=== PATIENT | male | born 1940 | race Caucasian/White ===

== ENCOUNTER 2017-10-25 19:25 | Inpatient (IN) ==
--- NOTE | 2017-10-25 19:48 | Emergency Department Note ---
Disposition Clinical Impression: Fecal impaction in rectum, Small bowel obstruction Disposition: Admitted As Inpatient Condition: Good Referrals: [place],PCP [Primary Care Provider] - Albaro Uribe [Family Provider] - Forms: Work/School Release, ED Satisfaction Letter General Adult HPI - General Chief complaint: ED Abdominal Pain Stated complaint: bowel obstruction Time Seen by Provider: 10/25/17 19:40 Source: patient, EMS Mode of arrival: EMS Limitations: no limitations Nursing Notes Reviewed: Yes Vital Signs Reviewed: Yes - History of Present Illness HPI Narrative: Transfer from the [place] for concern for small bowel obstruction. Potential coffee- ground emesis. Malignant melanomas primary diagnosis. Seen at [facility] on Monday for chemotherapy. Patient has lung metastases. He started having symptoms yesterday when he did not have any stool in his colostomy. Continues to have recurrent amounts of air. Patient has lower abdominal pain. Patient has had 3 episodes of vomiting which happened at the [place]. My evaluation he complains of mild nausea but has not had any other emesis. Patient had CT scan showing fecal impaction at the distal descending and proximal sigmoid colon down to the left lower quadrant colostomy. Upstream gaseous fluid distention of the colon. Small bowel dilation may be secondary to the impaction or ileus. Partially visualized left lower lobe mass. Right nephrectomy with thickening of bilateral adrenal glands. 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 WBC 2.1. Hemoglobin 9.7. Platelets 319. Absolute neutrophil count 1.9. Neutrophil 90.9% X-ray shows large masslike opacity in the left lung base that is incompletely assessed. Dilated bowel loops in the abdomen which could represent ileus or obstruction. CT recommended. - Related Data Allergies Allergy/AdvReac Type Severity Reaction Status Date / Time ciprofloxacin [From Cipro] AdvReac Diarrhea Verified 10/25/17 19:35 codeine AdvReac Vomiting Verified 10/25/17 19:39 gabapentin AdvReac Vomiting Verified 10/25/17 19:39 Review of Systems: As Per HPI Constitutional: Denies: fever, chills Cardiovascular: Denies: chest pain, palpitations Respiratory: Denies: cough, dyspnea Gastrointestinal: Reports: abdominal pain, nausea, vomiting. Denies: constipation Musculoskeletal: Denies: back pain Integumentary: Denies: rash, abrasion, lesions Physical Exam General: Well appearing, nontoxic, no acute distress Head: Normocephalic Atraumatic Eyes: PERRL, EOMI ENT: Airway patent, no stridor Neck: supple, no meningismus Chest: Lungs clear to auscultation bilateral Cardiac: Regular rate and rhythm, no murmurs, rubs or gallops Abdomen: Distended with mild tenderness to palpation. No rebound or guarding. Colostomy bag in place with air-filled bag. Musculoskeletal: Calves symmetric, nontender, no palpable cord Skin: No rash, normal skin tone Neuro: Alert and Oriented to person, place, and time; appropriate on exam. Course - Reevaluation(s) Reevaluation #1: Patient does have an elevated heart rate. He is asking for pain medication. Does have a history of atrial fibrillation. Has not been taking his medication as normal. Patient is on metoprolol. Fluids and Lopressor have been ordered. Stable at this time. - Consultations Consultation #1: Discussed the case Dr. Burroughs. Treat as small bowel obstruction and fecal impaction. No surgical intervention at this time. He had no other recommendations. Consultation #2: Discussed with Hospitalist. I did attempt fecal disimpaction at bedside. His stool is soft and was able to get a moderate amount of stool out. Patient tolerated well. Patient admitted for further management of fecal impaction as well as small bowel obstruction. Vital Signs Temperature 98 F 10/25/17 19:44 Pulse Rate 138 10/25/17 19:44 Respiratory Rate 20 10/25/17 19:44 Blood Pressure 94/56 10/25/17 19:44 O2 Sat by Pulse Oximetry 91 10/25/17 19:44 Temperature 98 F 10/25/17 19:44 Pulse Rate 135 10/25/17 20:33 Respiratory Rate 20 10/25/17 20:33 Blood Pressure 109/69 10/25/17 20:33 O2 Sat by Pulse Oximetry 88 10/25/17 20:33 Oxygen Delivery Oxygen Delivery Nasal Cannula Medical Decision Making - Medical Records Medical records reviewed: Yes I reviewed the patient's medical records. - Lab Data Lab results reviewed: Yes I reviewed the patient's lab results. - Radiology Data Radiology results reviewed: Yes I reviewed the patient's radiology results. - EKG Data EKG #1 EKG attestation: Yes I reviewed and interpreted this EKG. EKG results narrative: EKG shows atrial fibrillation with a rate of 132. QRS 101. QTC 462. No significant ST elevations or depressions. Tachycardia compared to previous EKG of 05/25/2007
[2017-10-25] MEDS ORDERED: *HR* Metoprolol 5 MG/5 ML VIAL IVP ONE ×2 (20:46→22:56)
[2017-10-25] MEDS ORDERED: Ondansetron 4 MG/2 ML VIAL IVP ONE (20:46)
[2017-10-25] MEDS ORDERED: 0.9 % Sodium Chloride 1,000 ML IVC ONE (20:46)
[2017-10-25] MEDS: *HR* Morphine 2 MG/ML SYRINGE IVP ONE (21:13)
[2017-10-25] MEDS ORDERED: Ondansetron 4 MG/2 ML VIAL IVP PRN (22:48)
[2017-10-25] MEDS ORDERED: Naloxone 0.4 MG/ML INJ IVP PRN (22:48)
[2017-10-25] MEDS ORDERED: *HR* FentaNYL (PF) 100 MCG/2 ML VIAL IVP PRN (22:50)
--- NOTE | 2017-10-25 22:57 | Internal Med History&Physical ---
<Oneal Guardado - Last Filed: 10/25/17 22:50> Date of Encounter: 10/25/17 Time of Encounter: 09:30 Internal Medicine - H&P: HPI Chief complaint: abdominal pain Admitted From: Emergency Dept Plans for Post Hospital Care: Home History of present illness: Mr. 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 He presents to emergency department from the [place] with complaint of abdominal pain starting yesterday. He states the pain is located in the lower abdomen and does not radiate. He describes it as a aching pain without exacerbating factors and is relieved with pain medication. He states his colostomy bag has had decreased output during this time and his only past air. Last bowel movement was yesterday morning and normal for him without any evidence of blood, melena, diarrhea. He normally does have bowel movements daily. He also has been experiencing some nausea and did have one episode of vomiting in the [place] emergency department which she states was dark in color and was described by staff as coffee ground in appearance. He is currently undergoing chemotherapy at the [facility] for squamous cell with most recent treatment Monday morning which he tolerated well. His partial colectomy he states was performed in approximately [id number] at the [facility]. He did have one complication many years ago involving anastomotic leak which was repaired at this facility by Dr. Kelly. In the emergency department, vital signs are significant for tachycardia at 118 , respiratory rate 20, blood pressure of 73/45, he is saturating 92% on 4 L of oxygen. He is not oxygen dependent at home. Laboratory results obtained the [place] were significant for leukopenia at 2.1, hemoglobin 9.7, BUNs/creatinine of 35 /1.43, glucose 355. CT scan was obtained at the [place] which showed fecal impaction at the distal descending and proximal sigmoid colon with proximal gas extending to the colostomy bag. Also noted was a right nephrectomy and thickened bilateral adrenal glands. Upon arrival to our emergency room he was given 2 L of normal saline boluses, 5 mg of metoprolol for an EKG reading atrial fibrillation with rapid ventricular response. He was given Zofran, oral morphine and general surgery was consulted. Past medical history as above Past surgical history includes descending colectomy with colostomy, right lower lobe lobectomy, right nephrectomy, left thumb amputation for invasive cancer Past social history: Former smoker quitting 30 years ago, former drinker, denies drug use. Lives at home with Family history: Patient denies Past Med Surg Social Fam HX - Past Medical History Medical history: cancer - Social History Smoking Status: Former smoker Smokeless Tobacco Status: No Alcohol use: rarely Drug use: none Internal Medicine - H&P: Meds 3 Allergy/AdvReac Type Severity Reaction Status Date / Time ciprofloxacin [From Cipro] AdvReac Diarrhea Verified 10/25/17 19:35 codeine AdvReac Vomiting Verified 10/25/17 19:39 gabapentin AdvReac Vomiting Verified 10/25/17 19:39 All Systems PM: A 10-system review of systems was performed and is negative for pertinent findings except as documented above in the HPI. - Constitutional Constitutional: no chills, no fever(s), no malaise, no weakness - Cardiovascular Cardiovascular ROS IM: dyspnea, no chest pain, no dyspnea on exertion, no edema , no palpitations, no syncope - Respiratory Respiratory: cough, chest congestion, excessive phlegm production, no hemoptysis , no dyspnea on exertion, no wheezing, no change in phlegm color, no pain with cough - Gastrointestinal Gastrointestinal: abdominal pain, change in bowel habits, coffee ground emesis, nausea, vomiting, no constipation, no diarrhea, no dysphagia, no hematemesis, no hematochezia, no loose stools, no melena - Integumentary Integumentary IM: no erythema, no rash - Neurological Neurological ROS: no numbness, no tingling - Constitutional Vitals: Temp Pulse Resp BP Pulse Ox 98 F 114 20 118/78 94 10/25/17 19:44 10/25/17 22:26 10/25/17 22:26 10/25/17 22:26 10/25/17 22:26 Exam: Gen.: Vitals noted. No acute distress. AAOx3. Resting comfortably in bed HEENT: PERRL/EOMI, oropharynx clear, Normocephalic, atraumatic, mildly dry mucous membranes Cardiac: Irregularly irregular rhythm, tachycardic, no murmur, +S1/S2 Pulmonary: Rales present in upper lobes otherwise CTA bilaterally, no wheezes, rales or rhonchi, equal chest expansion. Upper airway congestion Abdomen: soft, diffusely tender to palpation with most severe and right lower and left lower quadrants, BS diminished, no guarding, no rebound. Distended Extremities: no BLE edema, nontender calf, no cyanosis or clubbing Neuro: A&Ox3, moves all extremities, no focal deficits Psych: Appropriate mood and behavior - Assessment and plan (1) Small bowel obstruction Current Visit: Yes Status: Acute Assessment and plan: - Possible small bowel shock and versus fecal impaction as demonstrated by CT obtained at [place] - Manual disimpaction attempted in emergency room and noted soft stool - Gen. surgery consult in ER, appreciate recommendations - Patient's nausea and vomiting has resolved - Possible reported coffee-ground emesis and VA however hemoglobin stable at 9.7 and he has had no further episodes. Patient did report drinking prune juice earlier. We will hold anticoagulation and monitor at this time with serial H/H's. 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 Plan - Supportive care including IV fluids at 75 mL per hour, pain control, zofran - Nothing by mouth diet - NG tube not placed, low threshold patient's pain does not improve with medications or vomiting continues - Gen. surgery consultation (2) Atrial fibrillation with RVR Current Visit: Yes Status: Acute Assessment and plan: - Possibly brought on by pain, dehydration, stress reaction, not taking home medication - EKG from [place] confirms atrial fibrillation, rate currently in the 110s to 130s - Anticoagulated home with Xarelto patient states he has not taken any meds since 10/24 - Blood pressure since improved since presentation now as a MAP in the 90s - Received 5 mg of metoprolol IV in the emergency room Plan - Continue nothing by mouth as below - Hold anticoagulation for possible need for future surgery - Continue IV rate control (3) Acute respiratory failure Current Visit: Yes Status: Acute Assessment and plan: - Currently requiring 4 L of supplemental oxygen, no home O2 requirement - Chest x-ray performed at the [place] shows right lower lobe mass otherwise no acute process - Patient is a former smoker but denies any history of CHF - Respiratory failure possibly brought on by pain, A. fib RVR, undiagnosed COPD Plan - Continue supplemental oxygen as necessary - Treat underlying issues - Breathing treatments when necessary Qualifiers: Respiratory failure complication: hypoxia Qualified Code(s): J96.01 - Acute respiratory failure with hypoxia (4) Leukopenia Current Visit: Yes Status: Acute Assessment and plan: - WBC of 2.1 - Currently undergoing chemotherapy for squamous cell carcinoma of left hand with metastasis to the right lung - Low suspicion for infection at this time although he is notably tachycardic, tachypnea. - I believe his tachycardia more related to not taking his home medications and did not feel that he is septic at this time. Qualifiers: Leukopenia type: neutropenia Neutropenia type: secondary to cancer chemotherapy Qualified Code(s): D70.1 - Agranulocytosis secondary to cancer chemotherapy; T45.1X5A - Adverse effect of antineoplastic and immunosuppressive drugs, initial encounter (5) Diabetes mellitus Current Visit: Yes Status: Chronic Assessment and plan: - Type 2 diabetes - Blood sugar on presentation to the [place] of 355 - Patient does admit that he has been unable or unwilling to take his medications for past 2 days. - We will start sliding scale insulin - Every 6 Accu-Cheks while nothing by mouth - Check A1c with morning labs Qualifiers: Diabetes mellitus type: type 2 Diabetes mellitus fci insulin use: without extermination supervisor use Diabetes mellitus complication status: with hyperglycemia Qualified Code(s): E11.65 - Type 2 diabetes mellitus with hyperglycemia (6) Hypertension Current Visit: Yes Status: Acute Assessment and plan: - Has been better controlled since presentation - He did have one episode of hypotension however this resolved with fluids - Continue to monitor with when necessary metoprolol for A. fib as above - We will continue fluids while he is nothing by mouth Qualifiers: Hypertension type: essential hypertension Qualified Code(s): I10 - Essential (primary) hypertension (7) CAD (coronary artery disease) Current Visit: Yes Status: Chronic Assessment and plan: No complaints of chest pain - Continue home medications when able to tolerate oral intake Qualifiers: Coronary Disease-Associated Artery/Lesion type: jackson artery [place] vs. transplanted heart: jackson heart Associated angina: without angina Qualified Code(s): I25.10 - Atherosclerotic heart disease of jackson coronary artery without angina pectoris (8) Fecal impaction in rectum Current Visit: Yes Status: Acute Assessment and plan: As above for small bowel extraction - Manual disimpaction attempted to emergency room with some soft stool removed - Continue supportive care as above as well as bowel rest - Consider enemas if no improvement (9) DVT prophylaxis Current Visit: Yes Status: Acute Assessment and plan: Heparin subcutaneous 5000 units every 12 hours (10) Skin cancer Current Visit: Yes Status: Chronic Assessment and plan: - Primary site appears to be left hand status post amputation of the first digit - Patient is unsure on type, however chart review indicates squamous cell carcinoma - Reported metastasis to lung - Currently undergoing chemotherapy at [facility] - Time Spent With Patient Total time spent is greater than 50% in coordination of care (as documented) at patient's floor/unit and/or counseling patient: <Yoana Alvarado - Last Filed: 10/26/17 05:21> Date of Encounter: 10/25/17 Time of Encounter: 22:00 Internal Medicine - H&P: HPI History of present illness: Mr. Ruiz is a 77 year old male All Systems PM: A 10-system review of systems was performed and is negative for pertinent findings except as documented above in the HPI. - Constitutional Vitals: Temp Pulse Resp BP Pulse Ox 98.1 F 140 20 121/72 92 10/26/17 02:22 10/26/17 02:22 10/26/17 02:22 10/26/17 02:22 10/26/17 03:32 Internal Med - H&P Results - Labs CBC & Chem 7: 10/26/17 02:12 10/26/17 02:12 Labs: Short CBC 10/26/17 Range/Units 02:12 WBC 3.6 L (4.3-11.1) K/mcL Hgb 9.0 L (12.9-16.9) g/dL Hct 28.2 L (37.5-50.1) % Plt Count 239 (140-400) K/mcL Neutrophils # 3.1 (1.6-8.9) K/mcL BMP 10/26/17 02:12 Sodium 131 L Potassium 4.6 Chloride 99 Carbon Dioxide 23 BUN 42 H Creatinine 1.11 Glucose 246 H Calcium 9.6 - Assessment and plan (1) Fecal impaction in rectum Current Visit: Yes Status: Acute (2) Small bowel obstruction Current Visit: Yes Status: Acute (3) Atrial fibrillation with RVR Current Visit: Yes Status: Acute (4) Acute respiratory failure Current Visit: Yes Status: Acute Qualifiers: Respiratory failure complication: hypoxia Qualified Code(s): J96.01 - Acute respiratory failure with hypoxia (5) DVT prophylaxis Current Visit: Yes Status: Acute (6) Leukopenia Current Visit: Yes Status: Acute Qualifiers: Leukopenia type: neutropenia Neutropenia type: secondary to cancer chemotherapy Qualified Code(s): D70.1 - Agranulocytosis secondary to cancer chemotherapy; T45.1X5A - Adverse effect of antineoplastic and immunosuppressive drugs, initial encounter (7) Diabetes mellitus Current Visit: Yes Status: Chronic Qualifiers: Diabetes mellitus type: type 2 Diabetes mellitus extermination supervisor insulin use: without extermination supervisor use Diabetes mellitus complication status: with hyperglycemia Qualified Code(s): E11.65 - Type 2 diabetes mellitus with hyperglycemia (8) Hypertension Current Visit: Yes Status: Acute Qualifiers: Hypertension type: essential hypertension Qualified Code(s): I10 - Essential (primary) hypertension (9) CAD (coronary artery disease) Current Visit: Yes Status: Chronic Qualifiers: Coronary Disease-Associated Artery/Lesion type: jackson artery [place] vs. transplanted heart: jackson heart Associated angina: without angina Qualified Code(s): I25.10 - Atherosclerotic heart disease of jackson coronary artery without angina pectoris (10) Skin cancer Current Visit: Yes Status: Chronic - Time Spent With Patient Total time spent is greater than 50% in coordination of care (as documented) at patient's floor/unit and/or counseling patient: - Attending Attestation Patient seen and examined with resident. Patient status post mechanical fecal disimpaction and ED. Currently stable. Surgery to follow in the morning. Agree with the remainder of assessment and plan. Time spent with patient 30 minutes.
[2017-10-25] MEDS ORDERED: 0.9 % Sodium Chloride 1,000 ML IVC SCH (23:00)
[2017-10-25] MEDS ORDERED: *HR* Dextrose 50 % in Water (Syg) 50 ML SYRINGE IVP PRN (23:05)
[2017-10-25] MEDS ORDERED: D5% in Water 1,000 ML IVC PRN (23:05)
[2017-10-25] MEDS ORDERED: *HR* Metoprolol 5 MG/5 ML VIAL IVP PRN (23:05)
[2017-10-25] MEDS ORDERED: Dextrose Gel 15 GM/37.5 ML TUBE PO PRN ×2 (23:05)
[2017-10-25] MEDS ORDERED: 0.9 % Sodium Chloride 500 ML IVC ONE (23:29)
[2017-10-26] MEDS ORDERED: *HR* Metoprolol 5 MG/5 ML VIAL IVP ONE (01:15)
[2017-10-26] MEDS ORDERED: 0.9 % Sodium Chloride 500 ML IVC ONE ×2 (01:15→10:28)
[2017-10-26 02:46] LABS: Basophils % 0.3 %; Hematocrit 28.2 % (37.5-50.1); Immature Granulocytes % 1.1 % (0-4); Immature Platelets 2.8 % (1.1-6.1); Lymphocytes # 0.4 K/mcL (0.6-4.6); Lymphocytes % 10.4 %; Mean Corpuscular HGB Conc 31.9 g/dL (31.6-35.5); Mean Corpuscular Hemoglobin 24.7 pg (28.0-33.3); Mean Corpuscular Volume 77.3 fL (83.0-100.0); Mean Platelet Volume 9.9 fL (9.4-12.4); Monocytes # 0.1 K/mcL (0.0-1.3); Monocytes % 2.2 %; Neutrophils # 3.1 K/mcL (1.6-8.9); Platelet Count 239 K/mcL (140-400); Red Blood Count 3.65 M/mcL (4.19-5.50); Red Cell Distribution Width 16.4 % (11.5-14.5)
[2017-10-26 03:00] LABS: BUN/Creatinine Ratio 38 (6-26); Blood Urea Nitrogen 42 mg/dL (8-23); Calcium 9.6 mg/dL (8.6-10.3); Carbon Dioxide 23 mEq/L (23-29); Chloride 99 mEq/L (98-107); Glucose 246 mg/dL (70-105); Magnesium 2.1 mg/dL (1.6-2.6); Osmolality,Calculated 291 (280-300); Potassium 4.6 mEq/L (3.5-5.1); Sodium 131 mEq/L (136-145); eGFR For Non-African Americans > 60 (> 60)
[2017-10-26] MEDS: Insulin LISPRO 300 UNITS/3 ML VIAL SQ SCH ×4 (03:23→16:48)
[2017-10-26 03:33] LABS: Anisocytosis 1+ (Not Present); Platelet Estimate Normal (Normal)
[2017-10-26] MEDS: *HR* Heparin 5,000 UNIT/ML VIAL SQ SCH ×2 (06:20→16:47)
[2017-10-26] MEDS: OXYCODONE Oral CONC 10 MG/0.5 ML ORAL.SYG SL PRN (06:21)
[2017-10-26] MEDS: *HR* Morphine 2 MG/ML SYRINGE IVP ONE (09:54)
[2017-10-26] MEDS: *HR* Metoprolol 5 MG/5 ML VIAL IVP SCH ×3 (10:44→11:04)
[2017-10-26 10:56] LABS: Estimated Average Glucose 169 mg/dl; Hemoglobin A1C 7.5 %
[2017-10-26 12:54] LABS: Digoxin < 0.3 ng/mL (0.8-2.0)
[2017-10-26] MEDS: *HR* Digoxin 0.125 MG TABLET PO SCH (13:02)
[2017-10-26] MEDS ORDERED: Amiodarone Premix 150 MG/100 ML BAG IVPB ONE (15:50)
[2017-10-26] MEDS ORDERED: Amiodarone Premix 360 MG/200 ML BAG IVC ONE (15:50)
--- NOTE | 2017-10-26 16:17 | Internal Med Progress Note ---
<Darin Cody - Last Filed: 10/26/17 16:08> Hospitalist Progress Note - Encounter Date of Encounter: 10/26/17 Time of Encounter: 11:00 - Subjective Interval History: Patient seen and examined at bedside. Patient resting comfortably but displays some heavy breathing. Reports that his abdominal pain has decreased significantly, he does not feel as nauseous, no more bouts of emesis, and he reports that he does have an appetite at this time. His ostomy output seems to have resumed somewhat after manual disimpaction in the ED, has been changed once already this morning. No blood, melana or hematochezia noticed. Patients' SBO symptoms appear to have improved somewhat yet his AFib has progressed. His HR has been between 120-140 and MAP continues to hover around 70. Additionally the patient has become increasingly SOB and is currently on 10 Liters O2. Patient denies any other complaints at this time. - Exam Vitals: Temp Pulse Resp BP Pulse Ox 98.7 F 120 16 87/63 94 10/26/17 15:44 10/26/17 15:44 10/26/17 15:44 10/26/17 15:44 10/26/17 15:44 Exam: General: Vitals noted. No acute distress. A&Ox3. Resting comfortably in bed HEENT: PERRL/EOMI, oropharynx clear, Normocephalic, atraumatic, mildly dry mucous membranes Cardiac: Irregularly irregular rhythm, tachycardic, no murmur, +S1/S2 Pulmonary: Rales present in upper lobes otherwise CTA bilaterally, no wheezes or rhonchi. Abdomen: soft, mildly tender to palpation RLQ, BS diminished, no guarding, no rebound. Distended Extremities: no BLE edema, no cyanosis or clubbing Neuro: A&Ox3, moves all extremities, no focal deficits Psych: Appropriate mood and behavior - Assessment and Plan (1) Atrial fibrillation with RVR Current Visit: Yes Status: Acute Assessment and Plan: - Possibly brought on by pain, dehydration, stress reaction, not taking home medication - EKG from [facility] confirms atrial fibrillation, rate currently in the 120s to 140s - Anticoagulated home with Xarelto patient states he has not taken any meds since 10/24 - BP now hovering around MAP 70's - Received 5 mg of metoprolol IV in the emergency room Plan - Continue nothing by mouth as below - Hold anticoagulation for possible need for future surgery - Continue IV rate control (2) Small bowel obstruction Current Visit: Yes Status: Acute Assessment and Plan: - Possible SBO versus fecal impaction versus adynamic colonic ileus as demonstrated by CT - Manual disimpaction attempted in emergency room and noted soft stool - Gen. surgery consult in ER, appreciate recommendations - No surgical interventions at this time - Patient's nausea and vomiting has resolved - Possible reported coffee-ground emesis and VA however hemoglobin stable at 9.7 and he has had no further episodes. Patient did report drinking prune juice earlier. We will hold anticoagulation and monitor at this time with serial H/H's. 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 Plan - Supportive care including IV fluids at 75 mL per hour, pain control, zofran - Nothing by mouth diet - NG tube not placed, low threshold patient's pain does not improve with medications or vomiting continues - Gen. surgery consultation (3) Acute respiratory failure Current Visit: Yes Status: Acute Assessment and Plan: - Currently requiring 10 L of supplemental oxygen, no home O2 requirement - Chest x-ray performed at the [facility] shows left lower lobe mass otherwise no acute process - Patient is a former smoker but denies any history of CHF - Respiratory failure possibly brought on by pain, A. 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 - We will start sliding scale insulin - Every 6 Accu-Cheks while nothing by mouth - Check A1c with morning labs (6) Hypertension Current Visit: Yes Status: Acute Assessment and Plan: Known history of Hypertension - Has been better controlled since presentation - Now currently Hypotensive secondary to Afib - Metoprolol for A. fib as above - continue to monitor - We will continue fluids while he is nothing by mouth (7) CAD (coronary artery disease) Current Visit: Yes Status: Chronic Assessment and Plan: No complaints of chest pain - Continue home medications when able to tolerate oral intake (8) Fecal impaction in rectum Current Visit: Yes Status: Acute Assessment and Plan: As above for small bowel extraction - Manual disimpaction attempted to emergency room with some soft stool removed - Ostomy output somewhat improved - Continue supportive care as above as well as bowel rest - Consider enemas if no improvement (9) Skin cancer Current Visit: Yes Status: Chronic Assessment and Plan: Known history of Skin Cancer with Metastasis to Left Lung - Primary site appears to be left hand status post amputation of the first digit - Patient is unsure on type, however chart review indicates squamous cell carcinoma - Reported metastasis to lung - Currently undergoing [facility] (10) DVT prophylaxis Current Visit: Yes Status: Acute Assessment and Plan: Heparin subcutaneous 5000 units every 12 hours SNOMED Code(s): 992298238, 810593810 - Time Spent with Patient Total time spent is greater than 50% in coordination of care (as documented) at patient's floor/unit and/or counseling patient: Internal Medicine: Result - Labs CBC & Chem 7: 10/26/17 02:12 10/26/17 02:12 - Impressions Impressions Chest X-Ray 10/26/17 12:03 IMPRESSION: Dense masslike opacity in the mid to lower left lung corresponds to partially visualized mass in the left lower lobe on outside CT of the abdomen/pelvis. If not previously obtained, a dedicated chest CT with contrast is recommended for further evaluation.. D/ / Edgar Carter MD / Edgar Carter MD Interpreting Provider: Edgar Carter MD Abdomen X-Ray 10/26/17 13:43 IMPRESSION: 1. Stable moderate distention of the stomach. 2. Partial interval gaseous decompression of the stomach with progressive fluid opacification. 3. No evidence of perforation. D/ / 10/26/2017 16:04:48 Yoni Greenwood MD / fredy Interpreting Provider: Yoni Greenwood MD Consult Discharge Plan - Plan Referrals: [facility] [Outside] <William Alicea T - Last Filed: 10/26/17 17:46> Hospitalist Progress Note - Encounter Date of Encounter: 10/26/17 - Exam Vitals: Temp Pulse Resp BP Pulse Ox 97.6 F 135 16 93/63 92 10/26/17 15:48 10/26/17 16:55 10/26/17 16:55 10/26/17 16:55 10/26/17 16:55 - Assessment and Plan (1) Fecal impaction in rectum Current Visit: Yes Status: Acute (2) Small bowel obstruction Current Visit: Yes Status: Acute (3) Atrial fibrillation with RVR Current Visit: Yes Status: Acute (4) Acute respiratory failure Current Visit: Yes Status: Acute (5) DVT prophylaxis Current Visit: Yes Status: Acute (6) Leukopenia Current Visit: Yes Status: Acute (7) Diabetes mellitus Current Visit: Yes Status: Chronic (8) Hypertension Current Visit: Yes Status: Acute (9) CAD (coronary artery disease) Current Visit: Yes Status: Chronic (10) Skin cancer Current Visit: Yes Status: Chronic - Time Spent with Patient Total time spent is greater than 50% in coordination of care (as documented) at patient's floor/unit and/or counseling patient: Internal Medicine: Result - Labs CBC & Chem 7: 10/26/17 02:12 10/26/17 02:12 - Impressions Impressions Chest X-Ray 10/26/17 12:03 IMPRESSION: Dense masslike opacity in the mid to lower left lung corresponds to partially visualized mass in the left lower lobe on outside CT of the abdomen/pelvis. If not previously obtained, a dedicated chest CT with contrast is recommended for further evaluation.. D/ / Edgar Carter MD / Edgar Carter MD Interpreting Provider: Edgar Carter MD Abdomen X-Ray 10/26/17 13:43 IMPRESSION: 1. Stable moderate distention of the stomach. 2. Partial interval gaseous decompression of the colon with progressive fluid opacification. 3. No evidence of perforation. D/ / 10/26/2017 16:04:48 Yoni Greenwood MD / fredy Interpreting Provider: Yoni Greenwood MD - Attending Attestation I have personally seen and examined this patient on 10/26/17 and reviewed her chart and labs, including medications, I have discussed plan of care with the resident physician, whose documentation reflect our plan of care. With the additions/exceptions set forth below. 77 M with PMH of SCC with Lung mets, COPD, HTN, Afib on anticoagulation. The patient continued to be in A. fib with RVR throughout examination this morning, heart rate ranged from 120-140, blood pressure systolic in the 80s to 90s with mean arterial pressure persistently greater than 60. The patient remained asymptomatic without chest pain, neurologic symptoms. His abdomen and pelvis CAT scan was read by radiologist. We will reported a small bowel obstruction with fecal impaction. The patient did not respond to metoprolol IV pushes, did receive but not responded to Cardizem boluses. Given his low blood pressure, amiodarone drip was started and patient was transferred to the stepdown unit. Cardiology was consulted. Surgery is on board and helping with management of small bowel obstruction. Imaging reviewed: Is x-ray with chronic lung mass without any new infiltrates. Abdominal x-ray requested by surgery noted for stable moderate distention of the stomach, patient interrogation is decompression of the colon and no perforation. Patient is high risk due to his diagnosis of bowel obstruction as well as atrial fibrillation with rapid ventricular response requiring amiodarone infusion. Resume home meds, including digoxin, and anticoagulation only after surgery documentation of no plan for intervention. Rest of details is as in the resident physician's documentation <Glo,Darin M - Last Filed: 10/26/17 16:08> (3) Acute respiratory failure Qualifiers: Respiratory failure complication: hypoxia Qualified Code(s): J96.01 - Acute respiratory failure with hypoxia (4) Leukopenia Qualifiers: Leukopenia type: neutropenia Neutropenia type: secondary to cancer chemotherapy Qualified Code(s): D70.1 - Agranulocytosis secondary to cancer chemotherapy; T45.1X5A - Adverse effect of antineoplastic and immunosuppressive drugs, initial encounter (5) Diabetes mellitus Qualifiers: Diabetes mellitus type: type 2 Diabetes mellitus fci insulin use: without termite exterminator use Diabetes mellitus complication status: with hyperglycemia Qualified Code(s): E11.65 - Type 2 diabetes mellitus with hyperglycemia (6) Hypertension Qualifiers: Hypertension type: essential hypertension Qualified Code(s): I10 - Essential (primary) hypertension (7) CAD (coronary artery disease) Qualifiers: Coronary Disease-Associated Artery/Lesion type: craig artery [place] vs. transplanted heart: craig heart Associated angina: without angina Qualified Code(s): I25.10 - Atherosclerotic heart disease of craig coronary artery without angina pectoris <William Alicea T - Last Filed: 10/26/17 17:46> (4) Acute respiratory failure Qualifiers: Qualified Code(s): J96.01 - Acute respiratory failure with hypoxia (6) Leukopenia Qualifiers: Qualified Code(s): D70.1 - Agranulocytosis secondary to cancer chemotherapy; T45.1X5A - Adverse effect of antineoplastic and immunosuppressive drugs, initial encounter (7) Diabetes mellitus Qualifiers: Qualified Code(s): E11.65 - Type 2 diabetes mellitus with hyperglycemia (8) Hypertension Qualifiers: Qualified Code(s): I10 - Essential (primary) hypertension (9) CAD (coronary artery disease) Qualifiers: Qualified Code(s): I25.10 - Atherosclerotic heart disease of craig coronary artery without angina pectoris
--- NOTE | 2017-10-26 17:53 | General Surgery Consult Note ---
Date of Encounter: 10/26/17 Time of Encounter: 17:35 History of Present Illness Consult date: 10/25/17 Requesting physician: Sincere Gallagher History of present illness: This is a delayed dictation - the patient was initially evaluated at 1300 today with repeat examination at 17:30 77 yo referred for surgical evaluation and possible treatment after being transferred from the [facility] for further evaluation abdominal pain, distention, nausea and vomiting. Patient was referred to [facility] (Dr. Brock Kelly) at the request of the patient. Patient has a known history of colon cancer status post coloproctectomy in the remote past. The patient now has evidence of a large lung mass with metastases. Records from the [facility] indicate malignant melanoma is the primary diagnosis. The patient is currently undergoing chemotherapy at the [facility], most recent therapy administered [address] of the abdomen and pelvis demonstrated: Mild fluid distention of the distal esophagus system with either reflux or nausea vomiting ; emphysematous changes of the lung and right lung base atelectasis; left lung with masslike consolidation; evidence of right nephrectomy; melody related to the surgery or in the vicinity of the third portion of duodenum with possible stenosis of the duodenum at this location; there is massive distention of the cecum, ascending, and transverse colon with copious stool just proximal to an end colostomy consistent with fecal impaction with resulting proximal obstruction. No associated wall thickening, pneumatosis, or inflammatory changes noted. It is interesting that the bowel distal to the suspected stenosis of the duodenum appeared normal. 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 Medical history: Atrial fibrillation, squamous cell carcinoma of the hand resulting in imitation of the left thumb; diabetes; hypertension; hyperlipidemia ; coronary artery disease with stent placement; peripheral neuropathy Allergies: Ciprofloxacin causing diarrhea; codeine and gabapentin causing vomiting To my examination this is a thin frail elderly patient resting comfortably in his hospital bed. He reports no colostomy output in the previous 2 or 3 days, however, there is brown stool in the colostomy appliance left anterior abdominal wall. Pulse was elevated at 146, SPO2 89- 94% despite being on 10 L/m high flow mask. BP 87/63 - 96/54 Skin was warm without obvious jaundice Lungs were clear though diminished breath sounds on the right side were evident Cardiac examination was limited by the rapid rate, there were no appreciable murmurs Abdomen: Soft, nontender without appreciable masses. It appears markedly decompressed since his admission as evident on CT. The patient reports receiving enemas with copious production of stool and gas. This has resulted in decrease in the abdominal girth, resolution of his abdominal pain as well as resolution of his nausea and vomiting. Bowel sounds were hypoactive. A healthy-appearing stoma was evident left anterior abdominal wall. It was widely patent to digital examination. Copious, soft, brown stool was present in the distal colon proximal to the stoma. Extremities: The left wrist and proximal hand were bandaged consistent with recent surgery. Laboratories: Leukopenia with white count 3.6; anemia with hemoglobin 9.0, hematocrit 28.2; platelet count 239,000. Sodium 131, other electrolytes normal; the 142, creatinine 1.11 CT: Abdomen/pelvis was reviewed with [facility]. The pertinent findings are described in the history of present illness. Impression: 77-year-old male with known history of colorectal cancer referred for surgical evaluation of abdominal pain, distention due to what appears to be impacted stool versus obstipation. Abdominal pain, distention, nausea and vomiting relieved with enemas which have resulted in passage of large amount of stool and gas. Known history of metastatic lung cancer (unknown whether this is primary or metastatic or due to melanoma at the time of this dictation) Atrial fibrillation with current tachycardia Hypoxia which is likely chronic Diabetes, hypertension, hyperlipidemia, coronary artery disease status post stents; peripheral neuropathy likely due to diabetes Recommendations: Colostomy irrigation Check flat and upright abdominal x-rays to verify decompression of the dilated colon. If this can be verified, may initiate clear liquid diet Since my initial examination The patient has developed A. fib with RVR heart rate increased above 150 bpm. Currently on Cardizem drip with HR 120's The patient is been transferred to another nursing unit for continued care and management The patient has continued to pass copious stool with further decompression of the abdominal distention. The abdomen on reexamination was soft, nontender. Flat and upright abdominal films confirmed decompression of the previously distended, dilated right colon. Clear liquid diet has been ordered. Thank you for this consultation. Will re examine the patient in the AM Possible SBFT for further evaluation of the duodenum. Past Med Surg Social Fam HX - Past Medical History Medical history: cancer Psychiatric history: no psych history - Social History Smoking Status: Former smoker Smokeless Tobacco Status: No Alcohol use: rarely Drug use: none Medications and Allergies Ascorbic Acid [Vitamin C with Mallory Hips] 500 mg PO DAILY 10/26/17 [History] Brimonidine 0.2% [Alphagan] 1 drop BOTH EYES BID 10/26/17 [History] Digoxin [Lanoxin] 0.125 mg PO DAILY 10/26/17 [History] Ferrous Sulfate [Iron] 325 mg PO BID 10/26/17 [History] Insulin Glargine [Lantus] 14 unit SQ HS 10/26/17 [History] Loperamide [Imodium] 2 mg PO BID 10/26/17 [History] Metoprolol XL (24 HR) Succ [Toprol XL] 25 mg PO DAILY 10/26/17 [History] Multivitamin [One Daily Essential] 1 tab PO DAILY 10/26/17 [History] Nut.tx.gluc.intoler,Lac-Fr,Soy [Glucerna] 1 can PO DAILY 10/26/17 [History] Oxycodone HCl [Oxaydo] 10 mg PO Q4H MDD 8 TABLETS 10/26/17 [History] Pioglitazone HCl [Actos] 15 mg PO DAILY 10/26/17 [History] Rivaroxaban [Xarelto] 20 mg PO QPM 10/26/17 [History] Simvastatin [Zocor] 40 mg PO HS 10/26/17 [History] Zinc Sulfate [Zinc-15] 50 mg PO DAILY 10/26/17 [History] 3 Allergy/AdvReac Type Severity Reaction Status Date / Time ciprofloxacin [From Cipro] AdvReac Diarrhea Verified 10/25/17 19:35 codeine AdvReac Vomiting Verified 10/25/17 19:39 gabapentin AdvReac Vomiting Verified 10/25/17 19:39 Review of Systems All systems PM: The remainder of the systems were reviewed and are negative General Surgery Exam Initial Vital Signs Temp Pulse Resp BP Pulse Ox 98 F 138 20 94/56 91 10/25/17 19:44 10/25/17 19:44 10/25/17 19:44 10/25/17 19:44 10/25/17 19:44 Exam Initial Vital Signs Temp Pulse Resp BP Pulse Ox 98 F 138 20 94/56 91 10/25/17 19:44 10/25/17 19:44 10/25/17 19:44 10/25/17 19:44 10/25/17 19:44 Results - Labs 10/26/17 02:12 10/26/17 02:12 Abnormal lab results WBC 3.6 K/mcL (4.3-11.1) L 10/26/17 02:12 RBC 3.65 M/mcL (4.19-5.50) L 10/26/17 02:12 Hgb 9.0 g/dL (12.9-16.9) L 10/26/17 02:12 Hct 28.2 % (37.5-50.1) L 10/26/17 02:12 MCV 77.3 fL (83.0-100.0) L 10/26/17 02:12 MCH 24.7 pg (28.0-33.3) L 10/26/17 02:12 RDW 16.4 % (11.5-14.5) H 10/26/17 02:12 Lymphocytes # 0.4 K/mcL (0.6-4.6) L 10/26/17 02:12 Anisocytosis 1+ (Not Present) A 10/26/17 02:12 Sodium 131 mEq/L (136-145) L 10/26/17 02:12 BUN 42 mg/dL (8-23) H 10/26/17 02:12 BUN/Creatinine Ratio 38 (6-26) H 10/26/17 02:12 Glucose 246 mg/dL (70-105) H 10/26/17 02:12 POC Glucose 149 mg/dL (70-99) H 10/26/17 11:40 Hemoglobin A1c 7.5 % (-5.6) H 10/26/17 02:12 Digoxin < 0.3 ng/mL (0.8-2.0) L 10/26/17 02:12 All other labs normal. Consult Discharge Plan - Plan Referrals: [facility] [Outside]
[2017-10-26] MEDS: Amiodarone Premix 360 MG/200 ML BAG IVC SCH (21:52)
[2017-10-26] MEDS ORDERED: Ipratropium/Albuterol Neb 3 ML IH ONE (22:21)
[2017-10-27] MEDS: OXYCODONE Oral CONC 10 MG/0.5 ML ORAL.SYG SL PRN (00:34)
[2017-10-27] MEDS ORDERED: OXYCODONE Oral CONC 10 MG/0.5 ML ORAL.SYG SL ONE (01:46)
[2017-10-27] MEDS: Insulin LISPRO 300 UNITS/3 ML VIAL SQ SCH ×2 (02:02→08:48)
[2017-10-27] MEDS: *HR* Heparin 5,000 UNIT/ML VIAL SQ SCH (05:09)
[2017-10-27] MEDS ORDERED: 0.9 % Sodium Chloride 1,000 ML ONE (06:42)
[2017-10-27 07:24] LABS: Eosinophils % 0.8 %; Nucleated Red Blood Cells 1.6 /100 WBC (0)
--- NOTE | 2017-10-27 07:25 | Event Note ---
Date of Encounter: 10/27/17 Time of Encounter: 06:05 I responded to a rapid response call on this patient at roughly 6:03 AM. Upon my arrival to the bedside, Drs. Saldaña and his nurse and several staff members were present and assessing the patient. He was hypoxemic, minimally responsive, and requiring bag mask ventilation first for support. Given his decreased mental state, inability to protect his airway, and declining status, we decided to intubate patient. Prior to the patient, he had several bouts of coffee-ground and bloody emesis. Intubation was successful on the first attempt per Dr. Saldaña. Airway was secured and confirmed both by auscultation of lungs sounds and CO2 detector. Patient had good response to intubation with increasing O2 sats. However, blood pressure was dropping and he became bradycardic. He responded to atropine initially. However, he again later became bradycardic and did not respond to atropine. He then became pulseless and we called CODE BLUE. We began resuscitation per ACLS protocol. After 2 minutes pulse check, he was noted to be in ventricular fibrillation and we proceeded with cardioversion. We continued with resuscitation per ACLS protocol and he received 2 rounds of epinephrine, 1 round of amiodarone bolus, and about 6 minutes of chest compressions. His received sodium bicarbonate for presumed acidosis. At the last pulse check, patient was noted to have palpable pulse and stable rhythm. Blood pressure was in the 130's systolic. Airway was secured. Once patient was stabilized, he was moved to the ICU for ongoing critical care and management. Assistants present and assisting with the code include: Dr. Saldaña, Dr. Hernandez, Dr. Guardado.
[2017-10-27 07:26] LABS: Hematocrit 21.6 % (37.5-50.1); Hemoglobin 6.4 g/dL (12.9-16.9); Lymphocytes # 0.6 K/mcL (0.6-4.6); Lymphocytes % 44.5 %; Mean Corpuscular HGB Conc 29.6 g/dL (31.6-35.5); Mean Corpuscular Hemoglobin 23.7 pg (28.0-33.3); Mean Platelet Volume 10.1 fL (9.4-12.4); Monocytes # 0.1 K/mcL (0.0-1.3); Monocytes % 7.8 %; Neutrophils # 0.6 K/mcL (1.6-8.9); Platelet Count 199 K/mcL (140-400); Red Cell Distribution Width 16.8 % (11.5-14.5); Segmented Neutrophils % 46.9 %
[2017-10-27 07:33] LABS: VBG Ionized Calcium 1.17 mmol/L (1.15-1.35)
[2017-10-27 07:42] LABS: INR 1.7; Prothrombin Time 19.2 Seconds (9.4-12.1)
[2017-10-27] MEDS ORDERED: Vasopressin 40 UNIT in D5% in Water 100 ML IV SCH (07:45)
--- NOTE | 2017-10-27 07:50 | Procedure Note ---
<StephonHilton lechuga - Last Filed: 10/27/17 07:46> Date of procedure: 10/27/17 Pre-op diagnosis: Cardiac arrest and shock Post-op diagnosis: same Procedure: Position myself at the head of the bed and assisted in providing [id number] ventilation to the patient by applying seals the mass. Applied suction when the patient experienced vomiting and tilted patient right to allow vomit to drain. Using glidescope, A 7.5 ET tube was passed easily through the cords and stylet was removed. Tube was advanced to 24-1/2 cm at lip. Lung tineo were auscultated and air passage was heard bilaterally. Moisture was noted on anterior of the ET tube. Color change was noted on CO2 monitor. The tube was secured in place and the patient underwent CODE BLUE for cardiac arrest which ensued. Please see event note by Dr. Bauer regarding the events that took place during the cardiac arrest. Following ROSC, the patient was transferred to the ICU for further stabilization. In the ICU, the patient was prepped for central line and arterial line. The right groin was prepped with 2% chlorhexidine and draped with a full length sterile sheet in the usual fashion. No sedation or anesthesia were used because the patient was unconscious. The femoral vein was first accessed under ultrasound guidance with an 18 gauge thin wall needle, and guidewire was confirmed with US. A triple lumen was inserted via the seldinger technique. Blood was withdrawn from all lumens and flushed with normal saline. The catheter was sutured in place. The right femoral artery was then accessed with ultrasound guidance using a 20 guage needle. Guidewire placement was confirmed using ultrasound, and catheter was advanced to the femoral artery which gave immediate pulsatile return. The line was capped, and the area was then cleaned with saline and chlorhexadine. A biopatch was applied to the central venous catheter, and a dressing was applied over both prior to removal of drapes. Central line insertion and Arterial line insertion were assisted by Dr. Dominguez. Estimated blood loss 5mL. There were no complications during this procedure, and CXR and KUB were ordered and are pending. Anesthesia: none Surgeon: Hilton Saldaña Was there an gallery assistant present: Yes Cement Tester Assistant: Hilton Dominguez Estimated blood loss (cc): 5 Specimen: N/A Pathology: none sent Condition: critical Disposition: ICU <Nemours FoundationclydeAna S - Last Filed: 10/27/17 19:42> Procedure: I was present during the entire procedure assisted with critical portions of the procedure which was primarily done by Resident and .
[2017-10-27 07:51] LABS: Albumin 2.1 g/dL (3.5-5.7); Albumin/Globulin Ratio 0.8 (1.1-2.2); Bilirubin,Direct 0.2 mg/dL (0.0-0.2); Bilirubin,Indirect 0.4 mg/dL (0.0-1.2); Bilirubin,Total 0.6 mg/dL (0.3-1.0); Globulin 2.8 g/dL (2.4-3.5); Magnesium 2.5 mg/dL (1.6-2.6); Phosphorous 7.2 mg/dL (2.7-4.5); Total Protein 4.9 g/dL (6.4-8.9)
[2017-10-27] MEDS ORDERED: Piperacillin/Tazobactam 3.375 GM in 0.9 % Sodium Chloride Mini Bag 100 ML IVPB SCH (08:00)
[2017-10-27 08:03] LABS: Platelet Estimate Normal (Normal)
[2017-10-27 08:06] LABS: Anisocytosis 1+ (Not Present)
[2017-10-27] MEDS ORDERED: Norepinephrine 8 MG in D5% in Water 250 ML IVC SCH (08:15)
[2017-10-27] MEDS: Amiodarone Premix 360 MG/200 ML BAG IVC SCH (08:28)
[2017-10-27] MEDS: *HR* Digoxin 0.125 MG TABLET PO SCH (08:30)
[2017-10-27] MEDS ORDERED: Ringers Solution, Lactated 1,000 ML IVC ONE (08:39)
[2017-10-27] MEDS ORDERED: Ringers Solution, Lactated 1,000 ML ONE (08:40)
[2017-10-27 09:14] LABS: Calcium 8.5 mg/dL (8.6-10.3); Potassium 4.4 mEq/L (3.5-5.1)
[2017-10-27] MEDS ORDERED: 0.9 % Sodium Chloride 250 ML ONE (09:19)
[2017-10-27 09:25] LABS: Troponin I 0.22 ng/mL (< 0.04)
--- NOTE | 2017-10-27 09:34 | Cardiology Consult Note ---
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 No recent EKG for me to compare. I discussed repeat EKG with nurse. Palliative care in his room. Code status changed to DNRCC -A. B/p 60's systolic at this time on pressor support. Family at bedside. Family denies questions. Addendum entered and electronically signed by Yadiel Crandall CNP 10/27/17 10:05 : Original Note: Date of Encounter: 10/27/17 Time of Encounter: 09:19 Assessment and Plan (1) Atrial fibrillation with RVR Current Visit: Yes Status: Acute known history of atrial fibrillation. Developed atrial fibrillation with RVR after ACLS for respiratory and cardiac arrest. TTE completed this admission LVEF 55%. Normal LV chamber size and function.Mild concentric left ventricular hypertrophy. Mild left ventricular diastolic dysfunction. Normal right ventricular structure and function. Mild pulmonary hypertension. No obvious significant valvular dysfunction. Agree with amiodarone gtt for now. No AC due to anemia and coffee ground emesis- HGB -6.4. HR will likely improve when underlying issues improve. (2) Acute respiratory failure Current Visit: Yes Status: Acute Acute respiratory failure with subsequent cardiac arrest in the setting lung mass and bowel obstruction. He is not a candidate for invasive evaluation at this time with Hgb 6.4, coffee ground emesis and he is hemo-dynamically unstable. Ischemia does not appear to be primary source of cardiac arrest. Supportive care per intensive care team. TTE shows preserved LV function. Qualifiers: Respiratory failure complication: hypoxia Qualified Code(s): J96.01 - Acute respiratory failure with hypoxia Discussion w patient/family: The assessment and plan as outlined above was discussed with the patient and/or family members who expressed understanding and agreement. All questions were answered. Thank you for involving us in the care of your patient. Please call with any questions. History of Present Illness Consult date: 10/27/17 Requesting physician: Hilton Saldaña Consult reason: atrial fibrillation with RVR Chief complaint: s/p ACLS History of present illness: Mr. Ruiz is a 77 year old male with past medical history significant for atrial fibrillation, HTN, melanoma, colon cancer s/p remote colon resection, recently found to have lung mass with mets, nephrectomy, currently following [facility] who [facility] Cardiology consulted for atrial fibrillation with RVR. He is currently intubated. Records reviewed, last night he developed respiratory distress and hypoxia and required intubation. He then developed bradycardia and hypotension and was given atropine with subsequent ventricular fibrillation. He underwent defibrillation and then received 6 min of CPR. 2 rounds of epi given and then bolus of amiodarone and now is on amiodarone gtt. He then converted to atrial fibrillation with RVR. He is requiring maximal pressor support. He was noted to have coffee ground output when OG was placed. Of note information was obtained from the chart and medical staff. He is not responsive and there is no family at bedside. Past Med Surg Social Fam HX - Past Medical History Medical history: atrial fibrillation, cancer, coronary artery disease Psychiatric history: no psych history - Social History Smoking Status: Former smoker Smokeless Tobacco Status: No Alcohol use: rarely Drug use: none Medications and Allergies Ascorbic Acid [Vitamin C with Mallory Hips] 500 mg PO DAILY 10/26/17 [History] Brimonidine 0.2% [Alphagan] 1 drop BOTH EYES BID 10/26/17 [History] Digoxin [Lanoxin] 0.125 mg PO DAILY 10/26/17 [History] Ferrous Sulfate [Iron] 325 mg PO BID 10/26/17 [History] Insulin Glargine [Lantus] 14 unit SQ HS 10/26/17 [History] Loperamide [Imodium] 2 mg PO BID 10/26/17 [History] Metoprolol XL (24 HR) Succ [Toprol XL] 25 mg PO DAILY 10/26/17 [History] Multivitamin [One Daily Essential] 1 tab PO DAILY 10/26/17 [History] Nut.tx.gluc.intoler,Lac-Fr,Soy [Glucerna] 1 can PO DAILY 10/26/17 [History] Oxycodone HCl [Oxaydo] 10 mg PO Q4H MDD 8 TABLETS 10/26/17 [History] Pioglitazone HCl [Actos] 15 mg PO DAILY 10/26/17 [History] Rivaroxaban [Xarelto] 20 mg PO QPM 10/26/17 [History] Simvastatin [Zocor] 40 mg PO HS 10/26/17 [History] Zinc Sulfate [Zinc-15] 50 mg PO DAILY 10/26/17 [History] 3 Allergy/AdvReac Type Severity Reaction Status Date / Time ciprofloxacin [From Cipro] AdvReac Diarrhea Verified 10/25/17 19:35 codeine AdvReac Vomiting Verified 10/25/17 19:39 gabapentin AdvReac Vomiting Verified 10/25/17 19:39 All Systems Review: The remainder of the systems were reviewed and are negative Physical Examination Vital Signs, Last 4 Hours Pulse Resp BP Pulse Ox 10/27/17 09:00 130 30 92/44 96 10/27/17 07:00 105 93/47 10/27/17 06:45 84 14 66/37 99 10/27/17 06:00 99 57/44 10/27/17 05:59 14 66/37 83 General: Other (Respirations labored on ventilator support. ) HEENT: Atraumatic, Normocephaly, Mucus Membranes Moist, Other (ET tube and OG placed.) Neck: No JVD, Normal carotid pulses Cardiac: Other (irregularly irregular) Lungs: Other (respirations labored, lung sounds diminished) Neuro: Other (Unresponsive) Abdomen: Soft, Other Results 10/27/17 07:10 10/27/17 07:10 Lab Results 10/27/17 10/27/17 10/27/17 06:35 07:10 07:10 WBC 1.3 L D Hgb 6.4 L D Hct 21.6 L Plt Count 199 INR 1.7 APTT 36.0 Sodium 136 Potassium 4.4 Chloride 97 L Carbon Dioxide 18 L BUN 76 H Creatinine 2.22 H Glucose 274 H Calcium 8.5 L Magnesium 2.5 Total Bilirubin 0.6 AST 23 ALT 37 Alkaline Phosphatase 102 B-Natriuretic Peptide 10/27/17 07:10 WBC Hgb Hct Plt Count INR APTT Sodium Potassium Chloride Carbon Dioxide BUN Creatinine Glucose Calcium Magnesium Total Bilirubin AST ALT Alkaline Phosphatase B-Natriuretic Peptide 673 H Consult Discharge Plan - Plan Referrals: [facility] [Outside]
[2017-10-27] MEDS ORDERED: Phenylephrine 50 MG in D5% in Water 250 ML IVC SCH (10:00)
[2017-10-27 10:17] LABS: ABG Base Excess -9 mEq/L (-2 to 3); ABG HCO3 18 mEq/L (21-27); ABG Oxygen Saturation 87 % (95-98); ABG PCO2 45 mmHg (35-45); ABG PH 7.22 pH Units (7.32-7.45); ABG PO2 63 mmHg (85-104); ABG TCO2 20 mEq/L (20-26)
[2017-10-27 10:24] VITALS: BP 58/32
[2017-10-27] MEDS ORDERED: *HR* LORazepam 2 MG/ML VIAL IVP PRN (10:29)
[2017-10-27] MEDS ORDERED: Scopolamine Patch 1.5 MG PATCH.TD72 TD SCH (10:30)
[2017-10-27] MEDS ORDERED: Atropine Sulfate 1% 40 DROP/2 ML BOTTLE SL PRN (10:30)
[2017-10-27] MEDS ORDERED: Aminoglycoside Consult 1 EACH MC ONE (10:46)
[2017-10-27] MEDS ORDERED: *HR* Atropine Sulfate 1 MG/10 ML SYRINGE IV ONE (10:46)
[2017-10-27] MEDS ORDERED: *HR* EPINEPHrine 1 MG/10 ML SYRINGE IVP ONE (10:46)
[2017-10-27] MEDS ORDERED: *HR* Amiodarone 150 MG/3 ML VIAL IVPB ONE (10:46)
[2017-10-27] MEDS ORDERED: *HR* Norepinephrine 4 MG/4 ML VIAL IVC ONE (10:46)
--- NOTE | 2017-10-27 11:07 | Pulmonology Consult Note ---
<MeyersRomeo alanizbh - Last Filed: 10/27/17 11:49> Date of Encounter: 10/27/17 Time of Encounter: 07:30 Assessment and Plan (1) Atrial fibrillation with RVR Status: Acute - patient has a known Hx of Afib RVR. His TTE on admission sowed VLVE 55% along with ventricular hypertrophy. Mild pulmonary HTN with no significant valvular function. - as per Cardiology : continue amiodarone gtt - the anticoagulant has been held because patient presented with coffee ground emesis and anemia , Hb 6.4 - continue to monitor H&H, pRBC for reduced Hb. (2) Acute respiratory failure Status: Acute - secondary to cardiac arrest , patient's CT showed a metastazied lung mass , also came with a SBO - patient was intubated in the ICU, on pressors, given 1 unit of pRBCs. - continue to monitor . Qualifiers: Respiratory failure complication: hypoxia Qualified Code(s): J96.01 - Acute respiratory failure with hypoxia History of Present Illness Consult date: 10/27/17 History of present illness: Mr. 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 Patient was initially bradycardic and initially responded to atropine but then did not and became pulseless. CODE BLUE was called and resuscitation process was began as per the ACLS protocol. Patient received 2 rounds of Epinephrine, 1 round if Amiodarone, and about 6 rounds of chest compressions Patient was intubated with concerns of shock and put on pressors . Past Med Surg Social Fam HX - Past Medical History Medical history: atrial fibrillation, cancer, coronary artery disease Psychiatric history: no psych history - Social History Smoking Status: Former smoker Smokeless Tobacco Status: No Alcohol use: rarely Drug use: none Medications and Allergies Ascorbic Acid [Vitamin C with Mallory Hips] 500 mg PO DAILY 10/26/17 [History] Brimonidine 0.2% [Alphagan] 1 drop BOTH EYES BID 10/26/17 [History] Digoxin [Lanoxin] 0.125 mg PO DAILY 10/26/17 [History] Ferrous Sulfate [Iron] 325 mg PO BID 10/26/17 [History] Insulin Glargine [Lantus] 14 unit SQ HS 10/26/17 [History] Loperamide [Imodium] 2 mg PO BID 10/26/17 [History] Metoprolol XL (24 HR) Succ [Toprol XL] 25 mg PO DAILY 10/26/17 [History] Multivitamin [One Daily Essential] 1 tab PO DAILY 10/26/17 [History] Nut.tx.gluc.intoler,Lac-Fr,Soy [Glucerna] 1 can PO DAILY 10/26/17 [History] Oxycodone HCl [Oxaydo] 10 mg PO Q4H MDD 8 TABLETS 10/26/17 [History] Pioglitazone HCl [Actos] 15 mg PO DAILY 10/26/17 [History] Rivaroxaban [Xarelto] 20 mg PO QPM 10/26/17 [History] Simvastatin [Zocor] 40 mg PO HS 10/26/17 [History] Zinc Sulfate [Zinc-15] 50 mg PO DAILY 10/26/17 [History] 3 Allergy/AdvReac Type Severity Reaction Status Date / Time ciprofloxacin [From Cipro] AdvReac Diarrhea Verified 10/25/17 19:35 codeine AdvReac Vomiting Verified 10/25/17 19:39 gabapentin AdvReac Vomiting Verified 10/25/17 19:39 All Systems: The remainder of the systems were reviewed and are negative Physical Examination Vital Signs: Vital Signs, Last 4 Hours Temp Pulse Resp BP Pulse Ox 10/27/17 10:23 95.8 F L 124 30 58/32 59 10/27/17 09:58 29 78/36 91 10/27/17 09:48 96.1 F L 137 29 78/38 10/27/17 09:33 96.1 F L 120 30 10/27/17 09:00 130 30 92/44 96 Ventilator Settings Ventilator Settings: Ventilator Settings, Last 8 Hours Ventilator Tidal Volume 500 Setting Ventilator Tidal Volume 500 Setting Ventilator Tidal Volume 500 Setting Ventilator Tidal Volume 500 Setting Ventilator Respiratory Rate 28 Setting Ventilator Respiratory Rate 28 Setting Ventilator Respiratory Rate 12 Setting Ventilator Respiratory Rate 12 Setting Actual Respiratory Rate 29 Actual Respiratory Rate 30 Actual Respiratory Rate 14 Positive End Expiratory 8 Pressure Positive End Expiratory 5 Pressure Positive End Expiratory 5 Pressure Positive End Expiratory 5 Pressure Peak Inspiratory Airway 14 Pressure Peak Inspiratory Airway 14 Pressure Peak Inspiratory Airway 17 Pressure Results - Laboratory Findings CBC and BMP: 10/27/17 07:10 10/27/17 07:10 ABG ABG pH 7.22 pH Units (7.32-7.45) L 10/27/17 10:11 ABG pCO2 45 mmHg (35-45) 10/27/17 10:11 ABG pO2 63 mmHg (85-104) L 10/27/17 10:11 ABG O2 Saturation 87 % (95-98) L 10/27/17 10:11 PT/INR, D-dimer PT 19.2 Seconds (9.4-12.1) H 10/27/17 06:35 Abnormal lab findings: Abnormal lab results WBC 1.3 K/mcL (4.3-11.1) L D 10/27/17 07:10 RBC 2.70 M/mcL (4.19-5.50) L 10/27/17 07:10 Hgb 6.4 g/dL (12.9-16.9) L D 10/27/17 07:10 Hct 21.6 % (37.5-50.1) L 10/27/17 07:10 MCV 80.0 fL (83.0-100.0) L 10/27/17 07:10 MCH 23.7 pg (28.0-33.3) L 10/27/17 07:10 MCHC 29.6 g/dL (31.6-35.5) L 10/27/17 07:10 RDW 16.8 % (11.5-14.5) H 10/27/17 07:10 Neutrophils # 0.6 K/mcL (1.6-8.9) L 10/27/17 07:10 Nucleated RBCs/100 WBC 1.6 /100 WBC (0) H 10/27/17 07:10 Anisocytosis 1+ (Not Present) A 10/27/17 07:10 PT 19.2 Seconds (9.4-12.1) H 10/27/17 06:35 ABG pH 7.22 pH Units (7.32-7.45) L 10/27/17 10:11 ABG pO2 63 mmHg (85-104) L 10/27/17 10:11 ABG HCO3 18 mEq/L (21-27) L 10/27/17 10:11 ABG O2 Saturation 87 % (95-98) L 10/27/17 10:11 ABG Base Excess -9 mEq/L (-2 to 3) L 10/27/17 10:11 Chloride 97 mEq/L (98-107) L 10/27/17 07:10 Carbon Dioxide 18 mEq/L (23-29) L 10/27/17 07:10 BUN 76 mg/dL (8-23) H 10/27/17 07:10 Creatinine 2.22 mg/dL (0.70-1.30) H 10/27/17 07:10 Est GFR ( Amer) 35 (> 60) L 10/27/17 07:10 Est GFR (Non-Af Amer) 29 (> 60) L 10/27/17 07:10 BUN/Creatinine Ratio 34 (6-26) H 10/27/17 07:10 Glucose 274 mg/dL (70-105) H 10/27/17 07:10 POC Glucose 278 mg/dL (70-99) H 10/27/17 08:32 Hemoglobin A1c 7.5 % (-5.6) H 10/26/17 02:12 Calculated Osmolality 314 (280-300) H 10/27/17 07:10 Lactic Acid > 10.0 mmol/L (0.5-2.2) H* 10/27/17 07:10 Calcium 8.5 mg/dL (8.6-10.3) L 10/27/17 07:10 Phosphorus 7.2 mg/dL (2.7-4.5) H 10/27/17 07:10 Troponin I 0.22 ng/mL (< 0.04) H* 10/27/17 07:10 B-Natriuretic Peptide 673 pg/mL (Less than 100) H 10/27/17 07:10 Serum Total Protein 4.9 g/dL (6.4-8.9) L 10/27/17 07:10 Albumin 2.1 g/dL (3.5-5.7) L 10/27/17 07:10 Albumin/Globulin Ratio 0.8 (1.1-2.2) L 10/27/17 07:10 Digoxin < 0.3 ng/mL (0.8-2.0) L 10/26/17 02:12 - Clinical Findings Intake & Output: Intake & Output 08/23/18 08/24/18 08/24/18 23:59 07:59 15:59 Intake Total 200 / 200 129 / 129 1683 / 1683 Output Total 900 / 900 2024 / 2024 725 / 725 Balance -700 / -700 -1896 / -1896 958 / 958 Weight 66.3 kg Consult Discharge Plan - Plan Referrals: [facility] [Outside] <Ana Gutierrez S - Last Filed: 10/27/17 19:56> Date of Encounter: 10/27/17 All Systems: The remainder of the systems were reviewed and are negative Results - Laboratory Findings CBC and BMP: 10/27/17 07:10 10/27/17 07:10 ABG ABG pH 7.22 pH Units (7.32-7.45) L 10/27/17 10:11 ABG pCO2 45 mmHg (35-45) 10/27/17 10:11 ABG pO2 63 mmHg (85-104) L 10/27/17 10:11 ABG O2 Saturation 87 % (95-98) L 10/27/17 10:11 PT/INR, D-dimer PT 19.2 Seconds (9.4-12.1) H 10/27/17 06:35 Abnormal lab findings: Abnormal lab results WBC 1.3 K/mcL (4.3-11.1) L D 10/27/17 07:10 RBC 2.70 M/mcL (4.19-5.50) L 10/27/17 07:10 Hgb 6.4 g/dL (12.9-16.9) L D 10/27/17 07:10 Hct 21.6 % (37.5-50.1) L 10/27/17 07:10 MCV 80.0 fL (83.0-100.0) L 10/27/17 07:10 MCH 23.7 pg (28.0-33.3) L 10/27/17 07:10 MCHC 29.6 g/dL (31.6-35.5) L 10/27/17 07:10 RDW 16.8 % (11.5-14.5) H 10/27/17 07:10 Neutrophils # 0.6 K/mcL (1.6-8.9) L 10/27/17 07:10 Nucleated RBCs/100 WBC 1.6 /100 WBC (0) H 10/27/17 07:10 Anisocytosis 1+ (Not Present) A 10/27/17 07:10 PT 19.2 Seconds (9.4-12.1) H 10/27/17 06:35 ABG pH 7.22 pH Units (7.32-7.45) L 10/27/17 10:11 ABG pO2 63 mmHg (85-104) L 10/27/17 10:11 ABG HCO3 18 mEq/L (21-27) L 10/27/17 10:11 ABG O2 Saturation 87 % (95-98) L 10/27/17 10:11 ABG Base Excess -9 mEq/L (-2 to 3) L 10/27/17 10:11 Chloride 97 mEq/L (98-107) L 10/27/17 07:10 Carbon Dioxide 18 mEq/L (23-29) L 10/27/17 07:10 BUN 76 mg/dL (8-23) H 10/27/17 07:10 Creatinine 2.22 mg/dL (0.70-1.30) H 10/27/17 07:10 Est GFR ( Amer) 35 (> 60) L 10/27/17 07:10 Est GFR (Non-Af Amer) 29 (> 60) L 10/27/17 07:10 BUN/Creatinine Ratio 34 (6-26) H 10/27/17 07:10 Glucose 274 mg/dL (70-105) H 10/27/17 07:10 POC Glucose 278 mg/dL (70-99) H 10/27/17 08:32 Hemoglobin A1c 7.5 % (-5.6) H 10/26/17 02:12 Calculated Osmolality 314 (280-300) H 10/27/17 07:10 Lactic Acid > 10.0 mmol/L (0.5-2.2) H* 10/27/17 07:10 Calcium 8.5 mg/dL (8.6-10.3) L 10/27/17 07:10 Phosphorus 7.2 mg/dL (2.7-4.5) H 10/27/17 07:10 Troponin I 0.22 ng/mL (< 0.04) H* 10/27/17 07:10 B-Natriuretic Peptide 673 pg/mL (Less than 100) H 10/27/17 07:10 Serum Total Protein 4.9 g/dL (6.4-8.9) L 10/27/17 07:10 Albumin 2.1 g/dL (3.5-5.7) L 10/27/17 07:10 Albumin/Globulin Ratio 0.8 (1.1-2.2) L 10/27/17 07:10 Digoxin < 0.3 ng/mL (0.8-2.0) L 10/26/17 02:12 - Microbiology Findings Microbiology Findings: Microbiology, Last 48 Hours 10/27/17 09:35 Legionella Antigen - Final Urine,Catheterized Streptococcus pneumoniae Antigen (M - Final - Clinical Findings Intake & Output: Intake & Output 10/27/17 10/27/17 10/27/17 07:59 15:59 23:59 Intake Total 129 / 129 1683 / 1683 Output Total 2024 / 2024 725 / 725 Balance -1896 / -1896 958 / 958 Weight 66.3 kg - Attending Attestation I saw and evaluated this patient and my medical decision-making was reviewed with the Resident Physician. I agree with the documented findings, disposition and treatment plan as described except to the extent set forth below. We independently had [id number] contact with the patient I spent 40 minutes of Critical Care time with this patient. It involved decision making of high complexity to assess, manipulate, and support vital organ system failure and/or to prevent further life threatening deterioration of the patient's condition. The time involved in the performance of separately reportable procedures was not counted toward critical care time. Patient seen and examined at bedside Labs, radiology, chart personally reviewed. Management was reviewed during multidisciplinary critical care rounds. APPAREL MANAGER:Patient intubated not following much commands secondary toxic /metabolic encephalopathy Pulm: Patient has metastatic lung cancer due to invasive squamous cell carcinoma patient had a cardiac arrest most likely due to acute on chronic hypoxic respiratory failure secondary to aspiration the worsening hypoxia lead to cardiac arrest had ROSC after 10 minutes Cards: Patient had cardiac arrest with cardiogenic shock with multiple pressors despite maximal therapy patient was hypotensive with impending cardiac arrest at that point made him comfortable FEN-GI:NPO Renal:Labs and output reviewed ID: Patient is on broad spectrum antibiotics , crowell cultured Heme/Onc:Labs reviewed Endo: Glucose Monitored Integ/MSK: Skin Care per routine ICU Nursing Protocol to prevent ulcers. Lines: All lines examined without evidence of infection : Dispo: critically ill CODE:After all the maximal resuscitative measures patient did not respond to therapy family made him comfort care.
--- NOTE | 2017-10-27 11:11 | Palliative - Consult Note ---
Date of Encounter: 10/27/17 Time of Encounter: 10:00 - Assessment and Plan (1) Small bowel obstruction Current Visit: Yes Status: Acute Assessment and plan: Surgery consult performed and appreciated. (2) Atrial fibrillation with RVR Current Visit: Yes Status: Acute Assessment and plan: Cardizem drip managed by ICU team. Cardiology consulted completed. (3) Acute respiratory failure Current Visit: Yes Status: Acute Assessment and plan: Patient ventilated. Continued to have poor oxygenation. Patient's Caren opted to change patient to comfort care. Qualifiers: Respiratory failure complication: hypoxia Qualified Code(s): J96.01 - Acute respiratory failure with hypoxia (4) Goals of care, counseling/discussion Current Visit: Yes Status: Acute Assessment and plan: Conducted meeting with patient's , Caren, and family friend. Chapsarahy Hodgson present at bedside. Confirmed patient has been fighting cancer for a while and may just be too much, agreed. Patient's concerned over not doing enough; witnessed medication administered from crash cart. Opted to change CODE STATUS to DNR CCA. After notifying ICU team of change in goals of care to not perform CPR, returned to . Spoke regarding shelter goals of care. Expressed desire to keep patient comfortable and get tube out of mouth. CODE STATUS then changed to DNRCC. Patient extubated. Ordered Ativan for comfort. Also ordered scopalamine and Atropine if needed. Supportive care given to patient's . Notified Bill RN of change in goals of care. Palliative-CN HPI - Data of Consult Patient: new to practice Consult date: 10/27/17 Requesting Physician: William Alicea MD Primary Care Provider: PCP [place] Family Provider: Juan CarlosConmonica Provider - Consult Narrative Palliative Care/Comfort Measures: Palliative care Reason for consult: End of life care History of present illness: Mr. Ruiz is a 77 year old male Arrived to [facility] as transfer from the [place] on 10[facility]26[facility]17; concern for small bowel obstruction. Malignant melanoma primary diagnosis. Was seen Magdy on Monday for chemotherapy. Patient has lung metastases. Past medical history atrial fibrillation pressure ulcer, squamous cell carcinoma of the hand, excision of right kidney, open angle glaucoma, diabetes, hypertension, hyperlipidemia, carcinoma of the colon, adenocarcinoma, coronary artery disease with stent placement, urethral stricture, inguinal repair, peripheral neuropathy, and colostomy. Patient admitted for small bowel obstruction, Atrial fibrillation with RVR, Acute respiratory failure, Leukopenia, DM, HTN, CAD, and Fecal impaction in rectum. Initial CT showed: Partial visualization of an indeterminate mass-like consolidation of the left lung; Moderate gastric and mild duodenal distention with question of a partial duodenal obstruction at the junction of the second and third portions; Extensive small bowel adhesions with no evidence of a mid or distal small bowel obstruction; Status post left hemicolectomy; Mild ascites and peritoneal/retroperitoneal edema which is nonspecific; no abscess or evidence of perforation; and Extensive presacral postsurgical scarring. X-ray of chest showed: Dense masslike opacity in the mid to lower left lung corresponds to partially visualized mass in the left lower lobe on outside CT of the abdomen/pelvis. X-ray of abdomen showed: Stable moderate distention of the stomach; Partial interval gaseous decompression of the colon with progressive fluid opacification; and No evidence of perforation. Patient noted to have increased heart rate and oxygen demand with MAP of 70; oxygen at 10L NC. Patient reported no colostomy output times 2-3 days. General surgery consult completed. 10/27/17 @ 0600 patient was rapid response; hypoxemic , minimally responsive. Patient intubated. Patient found to be pulseless and CPR /ACLS protocol followed. Patient then transferred to ICU. Palliative care consulted for end of life planning. Prior to seeing patient/family, family member found to be outside of patients room crying. ICU team prepping to restart CPR. Patients meeting with Chapsarahy Hodgson upon arrival. Dr. Pinto met with patients and recommended not performing CPR again; patients agreed. Patient resting with eyes closed upon arrival for assessment. Patient did not react to tactile, verbal or painful stimulation. Patient had ventilator in place. CC: William Alicea MD Past Med Surg Social Fam HX - Past Medical History Medical history: atrial fibrillation, cancer, coronary artery disease Psychiatric history: no psych history - Social History Smoking Status: Former smoker Smokeless Tobacco Status: No Alcohol use: rarely Drug use: none Medications and Allergies Ascorbic Acid [Vitamin C with Mallory Hips] 500 mg PO DAILY 10/26/17 [History] Brimonidine 0.2% [Alphagan] 1 drop BOTH EYES BID 10/26/17 [History] Digoxin [Lanoxin] 0.125 mg PO DAILY 10/26/17 [History] Ferrous Sulfate [Iron] 325 mg PO BID 10/26/17 [History] Insulin Glargine [Lantus] 14 unit SQ HS 10/26/17 [History] Loperamide [Imodium] 2 mg PO BID 10/26/17 [History] Metoprolol XL (24 HR) Succ [Toprol XL] 25 mg PO DAILY 10/26/17 [History] Multivitamin [One Daily Essential] 1 tab PO DAILY 10/26/17 [History] Nut.tx.gluc.intoler,Lac-Fr,Soy [Glucerna] 1 can PO DAILY 10/26/17 [History] Oxycodone HCl [Oxaydo] 10 mg PO Q4H MDD 8 TABLETS 10/26/17 [History] Pioglitazone HCl [Actos] 15 mg PO DAILY 10/26/17 [History] Rivaroxaban [Xarelto] 20 mg PO QPM 10/26/17 [History] Simvastatin [Zocor] 40 mg PO HS 10/26/17 [History] Zinc Sulfate [Zinc-15] 50 mg PO DAILY 10/26/17 [History] 3 Allergy/AdvReac Type Severity Reaction Status Date / Time ciprofloxacin [From Cipro] AdvReac Diarrhea Verified 10/25/17 19:35 codeine AdvReac Vomiting Verified 10/25/17 19:39 gabapentin AdvReac Vomiting Verified 10/25/17 19:39 ROS unobtainable: due to endotracheal tube Palliative Care-Exam - Constitutional Vitals: Temp Pulse Resp BP Pulse Ox 95.8 F L 124 30 58/32 59 10/27/17 10:23 10/27/17 10:23 10/27/17 10:23 10/27/17 10:23 10/27/17 10:23 General appearance: Present: no acute distress - Head Head Exam: Present: atraumatic, normal inspection - Eye Eye exam: Present: normal appearance. Absent: periorbital swelling, periorbital tenderness Pupils: Present: fixed - ENT ENT exam: Present: mucous membranes dry - Expanded ENT Exam Mouth Exam: Present: dry mucosa - Neck Neck exam: Present: normal inspection - Respiratory Respiratory exam: Present: accessory muscle use, rhonchi, wheezes - Cardiovascular Cardiovascular exam: Present: irregular rhythm - Expanded Cardiovascular Exam Peripheral pulses: 1+: Radial (L), Radial (R), Posterior Tibialis (L), Posterior Tibialis (R), Dorsalis Pedis (L) PM, Dorsalis Pedis (R) PM - GI/Abdominal Exam GI/Abdominal exam: Present: diminished bowel sounds - Rectal Rectal Exam: Present: deferred - Catheter Type: Urethral (Alberto) - Extremities Exam Extremities exam: Absent: calf tenderness - Neurological Exam Neurological exam: Present: altered. Absent: alert - Expanded Neurological Exam Coma Scale Eye Opening: None Coma Scale Motor Response: None Coma Scale Verbal Response: None Coma Scale Total: 3 - Psychiatric Psychiatric exam: Present: flat affect - Skin Skin exam: Present: cyanosis, dry, intact, mottled, pallor Internal Medicine - CN: Reslt - Labs CBC & Chem 7: 10/27/17 07:10 10/27/17 07:10 Labs: Short CBC 10/27/17 Range/Units 07:10 WBC 1.3 L D (4.3-11.1) K/mcL Hgb 6.4 L D (12.9-16.9) g/dL Hct 21.6 L (37.5-50.1) % Plt Count 199 (140-400) K/mcL Neutrophils # 0.6 L (1.6-8.9) K/mcL BMP 10/27/17 07:10 Sodium 136 Potassium 4.4 Chloride 97 L Carbon Dioxide 18 L BUN 76 H Creatinine 2.22 H Glucose 274 H Calcium 8.5 L Cardiac Enzymes 10/27/17 Range/Units 07:10 Troponin I 0.22 H* (< 0.04) ng/mL Liver Function 10/27/17 Range/Units 07:10 Total Bilirubin 0.6 (0.3-1.0) mg/dL Direct Bilirubin 0.2 (0.0-0.2) mg/dL AST 23 (13-39) Units/L ALT 37 (7-52) Units/L Alkaline Phosphatase 102 (34-104) Units/L Albumin 2.1 L (3.5-5.7) g/dL - ABG Interpretation ABG results: ABG ABG pH 7.22 pH Units (7.32-7.45) L 10/27/17 10:11 ABG pCO2 45 mmHg (35-45) 10/27/17 10:11 ABG pO2 63 mmHg (85-104) L 10/27/17 10:11 ABG O2 Saturation 87 % (95-98) L 10/27/17 10:11 PT/INR, D-dimer PT 19.2 Seconds (9.4-12.1) H 10/27/17 06:35 - Impressions Impressions Chest X-Ray 10/26/17 12:03 IMPRESSION: Dense masslike opacity in the mid to lower left lung corresponds to partially visualized mass in the left lower lobe on outside CT of the abdomen/pelvis. If not previously obtained, a dedicated chest CT with contrast is recommended for further evaluation.. D/ / Edgar Carter MD / Edgar Carter MD Interpreting Provider: Edgar Carter MD Abdomen X-Ray 10/26/17 13:43 IMPRESSION: 1. Stable moderate distention of the stomach. 2. Partial interval gaseous decompression of the colon with progressive fluid opacification. 3. No evidence of perforation. D/ / 10/26/2017 16:04:48 Yoni Greenwood MD / fredy Interpreting Provider: Yoni Greenwood MD Echocardiogram 10/27/17 07:00 Impressions: Technically sub-optimal due to clinical status. LVEF 55%. Normal LV chamber size and function. Mild concentric left ventricular hypertrophy. Mild left ventricular diastolic dysfunction. Normal right ventricular structure and function. Mild pulmonary hypertension. No obvious significant valvular dysfunction. Findings discussed with ICU, Dr. Dominguez Left Ventricular Wall Motion: Rest Echo Findings All wall segments showed normal motion. Findings: Study Quality * Technically sub-optimal due to clinical status. ECG Findings * Sinus tachycardia. Left Ventricle * LVEF 55%. * Normal LV chamber size and function. * Mild concentric left ventricular hypertrophy. * Mild left ventricular diastolic dysfunction. Right Ventricle * Normal right ventricular structure and function. Left Atrium * Mildly dilated left atrium. Right Atrium * Mildly dilated right atrium. Aortic Valve * Aortic valve not well visualized. * No aortic stenosis. * No aortic regurgitation. Mitral Valve * Mildly thickened mitral valve leaflets. * No mitral regurgitation. * No mitral stenosis. Tricuspid Valve * Normal tricuspid valve structure and function. * Trace tricuspid regurgitation. * Mild pulmonary hypertension. Pulmonic Valve * Pulmonic valve not well visualized. Aorta * Normally sized aortic root. Pericardium * The pericardium appears normal. IVC * Normal IVC dimensions and inspiratory collapse. Pulmonary Artery * Normal visualized portions of the main pulmonary artery. Chest X-Ray 10/27/17 07:51 IMPRESSION: Large masslike density within the left mid lung for CT of the chest with contrast is suggested for further evaluation. Satisfactory endotracheal tube placement located 5.5 cm above the tanvi. D/ / 10/27/2017 08:26:33 Robert Ponce MD / jacqueline Interpreting Provider: Robert Ponce MD X-Ray 10/27/17 07:51 IMPRESSION: 1. Expected course of the patient's right femoral central venous catheter. 2. Worsened small bowel distention within the midabdomen concerning for a bowel obstruction. D/ / 10/27/2017 08:25:46 Fidel Ho MD / fredy Interpreting Provider: Fidel Ho MD Consult Discharge Plan - Plan Referrals: [facility] [Outside] Palliative Quality Palliative Quality: Screen for Code Status: Yes, Screen for Goals of Care: Yes, Screen for Pain: NA, If Pain Regimen Started, Initiate Bowel Regimen: NA, Screen for Nausea/Vomitting: NA Code Status: 10/27/17 10:12 DNR [Resuscitation Status: Active] [RES] Routine Comment: Resuscitation Status: DNR-Comfort Care-Arrest 10/27/17 10:27 DNR [Resuscitation Status: Active] [RES] Routine Comment: Resuscitation Status: DNR-Comfort Care
--- NOTE | 2017-10-27 11:43 | Death Note ---
<Wali Meyers - Last Filed: 10/27/17 16:47> Discharge Sum: Summary - Date and Time Date of admission: 10/26/17 11:53 Date of : 10/27/17 Time of : 10:47 - Summary Details: Mr. 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 Patient was initially bradycardic and initially responded to atropine but then did not and became pulseless. CODE BLUE was called and resuscitation process was began as per the ACLS protocol. Patient received 2 rounds of Epinephrine, 1 round if Amiodarone, and about 6 rounds of chest compressions Patient was intubated with concerns of shock and put on pressors . Patient vitals began to decline eventually with declining blood pressure and increased heart rate. His repeat ABG showed worsening acidosis and the plan was to give bicarbonate push. The family was educated about the worsening prognosis of the patient, with his Hx of metastasizing squamous cell carcinoma. As per family's wishes, patient's Code status was changed from Full Code to DNR- Comfort Care. Eventually all the care was withdrawn and the patient . Time of was 10.47 AM - Additional Data Confirmation of as documented by pronouncing clinician: no pulse Family: at bedside Additional persons at bedside: patel Attending/PCP notified?: Yes Attending physician: William Alicea MD Was code activated?: Yes Autopsy requested?: No open cut examiner notified?: Yes Organ bank notified?: No Advance directives: Yes Hospice patient?: No Discharge Sum: Diag - PCOD Probable Cause of : Squamous cell carcinoma of bronchus of left lung Discharge Sum: Prov - Provider Primary care physician: [facility] Admitting clinician: Ana Gutierrez Attending physician on admission: Yoana Alvarado Consults: 10/26/17 13:44 Consult to Enterostomal Therapist [CONS] Routine Reason for Consult: obstipation, impacted stool at the end colostomy with massive proximal distention; colostomy irrigation. Phone message. Time Notified: 13:45 Call Completed: Yes 10/26/17 15:51 Consult to Cardiology [CONS] Routine Comment: Consulting Provider: Pao Barrett Reason for Consult: Afib with RVR, Hypotension, Call Completed: Yes 10/27/17 01:56 Consult to Palliative Care [CONS] Routine Comment: Consulting Provider: Palliative Care [place] Reason for Consult: Pt states "I'm going to be cone soon" and is generally very uncomfortable. Would like to discuss end of life planning Call Completed: No Pronouncing clinician: Wali Meyers <Ana Gutierrez S - Last Filed: 10/27/17 20:02> Discharge Sum: Summary - Date and Time Date of admission: 10/26/17 11:53 - Summary Details: I agree with the above hospital summary as mentioned by the resident . - Additional Data Attending physician: William Alicea MD Discharge Sum: Prov - Provider Primary care physician: [facility] Consults: 10/26/17 13:44 Consult to Enterostomal Therapist [CONS] Routine Reason for Consult: obstipation, impacted stool at the end colostomy with massive proximal distention; colostomy irrigation. Phone message. Time Notified: 13:45 Call Completed: Yes 10/26/17 15:51 Consult to Cardiology [CONS] Routine Comment: Consulting Provider: Cardiology [place] Reason for Consult: Afib with RVR, Hypotension, Call Completed: Yes 10/27/17 01:56 Consult to Palliative Care [CONS] Routine Comment: Consulting Provider: Palliative Care [place] Reason for Consult: Pt states "I'm going to be cone soon" and is generally very uncomfortable. Would like to discuss end of life planning Call Completed: No
--- NOTE | 2017-10-27 18:51 | Electrocardiograph Report ---
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
[2017-10-30 11:40] LABS: ABG Base Excess -11 mEq/L (-2 to 3); ABG HCO3 17 mEq/L (21-27); ABG Oxygen Saturation 100 % (95-98); ABG PCO2 51 mmHg (35-45); ABG PH 7.14 pH Units (7.32-7.45); ABG PO2 224 mmHg (85-104); ABG TCO2 19 mEq/L (20-26); Blood Gas Modality VC; Blood Gas PEEP 5 cm H2O; Blood Gas Respiration Rate 12; Blood Gas VT 500 cc
== END 2017-10-27 10:47 | disposition expired | DRG 208 ==
LOC: 3ANU 19:25 → EMEROOARM 19:25 → SUATTDRO 22:29 → 2NENU 10-26 00:45 → 2NNU 10-26 15:43 → ICNU 10-27 06:45
PROVIDERS: ADMIT Internal Medicine; ATTEND Internal Medicine